=== PATIENT | male | born 1975 | race Two or more races ===

== ENCOUNTER 2025-10-05 17:29 | Emergency (ER) | payer SELFPAY ==
[~2025-10-05] VITALS: Ht 172.7 cm; Wt 75.0 kg
[2025-10-05] MEDS ORDERED: SODIUM BICARB 8.4% 50Meq/50ml SYR INJ IV ONE (17:30)
[2025-10-05] MEDS ORDERED: EPINEPHrine HCL 1 MG/10 ML SYRG IV ONE (17:30)
[2025-10-05] MEDS ORDERED: DEXTROSE (50%) 50ML SYRG IV ONE (17:30)
[2025-10-05 17:34] VITALS: BP 0/0; PULSE 0; RESP 0; TEMP 98.8; O2SAT 0
--- NOTE | 2025-10-05 17:44 | ED.PDOC ---
CPR-HPI HPI Comments 50 y/o M, MARTIR, presents to the ED in full arrest with KRUPA machine in place. EMS reports, patient is coming from home where he went into cardiac arrest while having intercourse. Per EMS, patent was given x5 epinephrin in the field with no change in rhythm or status. Patient arrived to the ED at 1729 and had an approximate down time of x25 minutes. Upon arrival, patient was transferred to ED bed 14, care is ongoing at this time in accordance to ACLS protocol. Chief Complaint: CPR Time Seen by MD: 17:29 Reviewed Notes: Nurses Notes, Medications, Allergies Allergies: Coded Allergies: UNOBTAINABLE (Unverified , 10/05/25) Information Source: Emergency Med Personnel Mode of Arrival: EMS Timing: Minutes Duration: Down time prior EMS: (25) Onset: With exertion, Witnessed Available Hx: Unknown Treatment: CPR, Intubation, IV, Epinephrine Past Medical History PAST MEDICAL HISTORY: Unknown Surgical History: Unknown Family History Family History: Unknown Social History Smoker: Unknown Alcohol: Unknown Drugs: Unknown Lives In: Home Unable to Obtain due to: Medical Urgency All Other Systems: Reviewed and Negative Physical Exam General Appearance: Severe Distress HEENT: Other (Pupils are mid range and fixed. The patient has no endotracheal tube in place) Neck: Supple Respiratory: Other (The patient is being mechanically ventilated) Cardiovascular: Other (Asystole) Breast Exam: Deferred Gastrointestinal: No Pulsatile Mass, Soft Genitalia: Deferred Pelvic: Deferred Rectal: Deferred Extremities: Other (Pale and pulseless) Neurologic: Other (GCS of three) Cerebellar Function: Unable to Test Reflexes: None Skin: Pallor Lymphatic: No Adenopathy Was a procedure done? Was a procedure done?: Yes Sedation Sedation?: No Intubation Indication: Respiratory Insufficiency Prep: No Preoxygenation Pretreated with: Nothing Medicated with: Nothing Intubation Approach: Orotracheal Intubation size: cm (8.0) Informed consent obtained: No Risks/benefits/alt described: No Differential Dx CPR Differential Diagnosis: Cardiopulmonary arrest X-Ray, Labs, Meds, VS Vital Signs Date Time Temp Pulse Resp B/P (MAP) Pulse Ox O2 Delivery O2 Flow Rate FiO2 10/05/25 17:34 98.8 0 0 0/0 0 98.8 Despite CPR and ACLS protocol, the patient has a . Time of 1ST Reevaluation: 17:59 Reevaluation 1ST: Unchanged Time of 2ND Reevaluation: 18:42 Reevaluation 2ND: The patient has Patient Education/Counseling: Pt Unresponsive Family Education/Counseling: Diagnosis, Treatment, Prognosis SEPSIS Sepsis Screen Vital Signs Date Time Temp Pulse Resp B/P (MAP) Pulse Ox O2 Delivery O2 Flow Rate FiO2 10/05/25 17:34 98.8 0 0 0/0 0 98.8 Departure 1 Departure Time of Disposition: 18:41 Impression: Primary Impression: Cardiopulmonary arrest Disposition: 20 Condition: Other () Critical Care Note Critical Care Time?: No Heart Score Heart Score: Heart Score Response (Comments) Value History N/A 0 EKG N/A 0 Age N/A 0 Risk Factors N/A 0 Troponin N/A 0 Total 0 Stability Stability form required: No I personally scribed for KEM BARRAZA MD ([email or web address]) on 10/05/25 at 17:44. Electronically submitted by Vera Iglesias [email or web address]). KEM BARRAZA MD Oct 05, 2025 17:44
--- NOTE | 2025-10-05 19:52 | RESUS ---
CODE IDANIA ASSESSSMENT History of Events History of Events: Secured code idania arrived at 1729 with CPR in progress with automatic compression device, 16g left ac IV and left tibia I/O Initial Information Date: Oct 05, 2025 Time: 17:29 Location of Arrest: pt home Arrest Witnessed: Yes Pre-Hospital Care: ACLS Type of arrest: Cardiac, Adult, Witnessed Spontaneous Respirations: No Pulse Present: No Monitoring: ECG, Pulse Oximetry Crash Cart Opened and Supplies: Yes Airway Ventilation Breathing at Onset: Assisted Oxygen Delivery Method: Ambu-Bag Artificial Ventilation: Bag/Mask Intubation Time: 17:30 Intubation Size: 8.0 cuffed Intubated by: Dr Steele Intubated orally: Yes CO2 indicator used: Yes Confirmation: Auscultation, Exhaled CO2 Circulation Circulation #1: Time: 17:32 Circulation Comment: asystole Circulation #2: Time: 17:34 Temperature (Fahrenheit): 98.0 Circulation Comment: asystole, temp obtained rectally Circulation #3: Time: 17:36 Circulation Comment: asystole Circulation #4: Time: 17:38 Circulation Comment: asystole Circulation #5: Time: 17:40 Circulation Comment: PEA Circulation #6: Time: 17:42 Circulation Comment: PEA Circulation #7: Time: 17:44 Circulation Comment: aystole Circulation #8: Time: 17:46 Circulation Comment: asystole Circulation #9: Time: 17:48 Circulation Comment: PEA Circulation #10: Time: 17:50 Circulation Comment: asystole/TOD Procedure - IV Procedure - IV : IV start time: 17:41 IV Side: Left IV Location: External Jugular IV Placed: RN IV Gauge: 20 IV Line Care: Saline Flush Medications & Response Medications and Responses #1: Medication Time: 17:30 ADULT Medications Given ADULT: Epinephrine 1 mg, Sodium Bacarbinate 50 meq Route of Administration: IV Medications and Responses #2: Medication Time: 17:33 ADULT Medications Given ADULT: Epinephrine 1 mg, Sodium Bacarbinate 50 meq Route of Administration: IV Medications and Responses #3: Medication Time: 17:34 ADULT Medications Given ADULT: D50 (amp) Route of Administration: IV Medication Comment: blood sugar 65 Medications and Responses #4: Medication Time: 17:37 ADULT Medications Given ADULT: Epinephrine 1 mg Route of Administration: IV Medications and Responses #5: Medication Time: 17:40 ADULT Medications Given ADULT: Epinephrine 1 mg Route of Administration: IV Medications and Responses #6: Medication Time: 17:43 ADULT Medications Given ADULT: Epinephrine 1 mg Route of Administration: IV Medications and Responses #7: Medication Time: 17:47 ADULT Medications Given ADULT: Epinephrine 1 mg Route of Administration: IV Nurses Notes Carlos Coma Scale Eye Opening: None (1) [place] Coma Scale Verbal: None (1) Carlos Coma Scale Motor: None (1) Pupil Reaction: Non Reactive Bedside Blood Glucose: 65 EKG Rhythm: Asystole Nurses Notes - Comment: Dr Steele spoke with outside of ER. Offered to be present at bedside but requested to stay outside. came to bedside after TOD. Time Code Ended Post Arrest Status: Outcome of code: Unsuccessful Patient pronounced by: Dr Steele Time patient pronounced: 17:50 Family notified: Yes Code Team Present: Dr Steele, Killian Ng RN, Abhishek Sanders RN, Roshni Leonard RN, Nancy Cintron RN, Veronica HUTCHISON, Sunil student nurse learning disabilities specialist, Matilde ERTFabian ERT, Arlin RT, Maia RT, Miladis HUTCHISON, Abhishek Ervin Oct 05, 2025 19:52
== END 2025-10-05 17:50 ==
LOC: ER 17:29 → EDBD 17:29 → ER 17:50
DX: I46.9 Cardiac arrest, cause unspecified (principal)
CPT/HCPCS: 31500; 82947; 92950; 99285; J0169; J7042